=== PATIENT | male | born 1985 | race African-American/Black ===

== ENCOUNTER 2017-03-31 20:03 | Emergency (ER) | payer OTHER ==
[2017-03-31 20:16] VITALS: BP 143/79
[2017-03-31] MEDS ORDERED: HYDROCODONE/ACETAMINOPHEN 5-325 MG 6 TAB/DSPK PO PRN (22:24)
[2017-03-31] MEDS ORDERED: HYDROCODONE/ACETAMINOPHEN 5-325 MG TABLET PO ONE (22:24)
[2017-03-31] MEDS ORDERED: DOXYCYCLINE HYCLATE 100 MG TABLET PO ONE (22:24)
--- NOTE | 2017-03-31 22:29 | ER Document Report ---
ED General - General Chief Complaint: Ear Pain Stated Complaint: RIGHT EAR PAIN Time Seen by Provider: 03/31/17 22:10 Notes: Patient is a 31-year-old male who presents with complaint of pain in the right ear. Patient says that he was cleaning his ear with a syringe and he feels that he persists wants to form the ear and possibly to trauma to the canal. He says since in the ear canal swelled up and is painful. No blood coming from the ear. No abnormal discharge. No fevers. No vomiting. No recent cold-like symptoms. No other complaints at this time. TRAVEL OUTSIDE OF THE [place] IN LAST 30 DAYS: No - Related Data Allergies/Adverse Reactions: No Known Allergies Allergy (Verified 03/31/17 20:06) Past Medical History - Social History Smoking Status: Unknown if Ever Smoked Chew tobacco use (# tins/day): No Frequency of alcohol use: None Drug Abuse: None Family History: Reviewed & Not Pertinent Patient has suicidal ideation: No Patient has homicidal ideation: No Renal/ Medical History: Denies: Hx Peritoneal Dialysis Musculoskeltal Medical History: Reports Hx Arthritis Past Surgical History: Reports: Hx Orthopedic Surgery - l hip replaced-04/02 - Immunizations Hx Diphtheria, Pertussis, Tetanus Vaccination: Yes Review of Systems - Review of Systems Notes: My Normal Review Basic REVIEW OF SYSTEMS: CONSTITUTIONAL : Denies fever, chills, or sweats. Denies recent illness. EENT: Right-sided ear pain RESPIRATORY: Denies cough, cold, or chest congestion. Denies shortness of breath, difficulty breathing, or wheezing. MUSCULOSKELETAL: Denies neck or back pain or joint pain or swelling. SKIN: Denies rash or skin lesions. NEUROLOGICAL: Denies altered mental status or loss of consciousness. Denies headache. ALL OTHER SYSTEMS REVIEWED AND NEGATIVE. Physical Exam - Vital signs Vitals: Temp Pulse Resp BP Pulse Ox 99 F 82 18 143/79 H 98 03/31/17 20:14 03/31/17 20:14 03/31/17 20:14 03/31/17 20:14 03/31/17 20:14 - Notes Notes: General Appearance: Well nourished, alert, cooperative, no acute distress, no obvious discomfort. Vitals: reviewed, See vital signs table. Head: no swelling or tenderness to the head Eyes: PERRL, EOMI, Conjuctiva clear Mouth: No decreasd moisture Ears: Patient's ear itself is not swollen or red. Ear canal is swollen shut. This is consistent with patient's history of trauma from the earwax removing syringe. Neck: No significant swelling or redness into the neck. Skin: warm, dry, appropriate color, no rash Neuro: speech clear, oriented x 3, normal affect, responds appropriately to questions. Course - Re-evaluation Re-evalutation: 04/01/17 02:52 Patient will be discharged home eardrops to continuing Cipro and dexamethasone. Informed her to return to ER medially if has any redness or swelling around the ear if he has fevers or feels unwell. Patient agrees with plan will be discharged home. Dictation of this chart was performed using voice recognition software; therefore, there may be some unintended grammatical errors. - Vital Signs Vital signs: Temp Pulse Resp BP Pulse Ox 99 F 82 18 143/79 H 98 03/31/17 20:14 03/31/17 20:14 03/31/17 20:14 03/31/17 20:14 03/31/17 20:14 Discharge - Discharge Clinical Impression: Otitis externa Qualifiers: Otitis externa type: unspecified type Chronicity: acute Laterality: right Qualified Code(s): H60.501 - Unspecified acute noninfective otitis externa, right ear Condition: Good Disposition: HOME, SELF-CARE Additional Instructions: Otitis Externa You have otitis externa -- an infection of the outer ear canal. This can be very painful. It's sometimes called "swimmer's ear," because it often occurs after prolonged water exposure. Many things, such as earwax and dirt in the ear, can contribute to it. The usual treatment is antibiotic/antiinflammatory ear drops. Occasionally , a wick will be placed in the ear to draw in the medicine. If the infection is severe, an oral antibiotic may be prescribed. Pain medication is often needed. Avoid getting water in the ear. Outer ear infections often take longer to heal than you might expect. Some tenderness and ache in the ear may persist for about two weeks. See your physician if you fail to improve as expected. Call the doctor at once if you develop fever, increasing swelling (particularly if it makes your ear "poke out"), severe headache, stiff neck, or decreased hearing. PLace 1-2 drops in the right ear every 12 hours for 7 days to help your right ear pain. Forms: Return to Work
[2017-03-31] MEDS ORDERED: CIPROFLOXACIN-HC OTIC SUSP 10 ML AD ONE (22:34)
[2017-03-31] MEDS ORDERED: CIPROFLOXACIN-HC OTIC SUSP 10 ML ONE (22:53)
== END 2017-03-31 22:55 | disposition home or self-care (01) ==
LOC: ER 20:03
DX: H60.501 Unspecified acute noninfective otitis externa, right ear (principal); H92.01 Otalgia, right ear
CPT/HCPCS: 99282; J3490

== ENCOUNTER 2019-07-29 21:26 | Emergency (ER) | payer OTHER ==
[2019-07-29] MEDS ORDERED: AMOXICILLIN TR/POT CLAVULANATE 875-125 MG TAB PO ONE ×2 (22:06→23:22)
[2019-07-29] MEDS ORDERED: DIPH/PERTUSS(ACELL)/TETANUS VAC/PF 0.5 ML SYR (>=10YO) IM ONE (22:07)
[2019-07-29] MEDS ORDERED: RABIES VACCINE (PCEC)/PF 2.5 UNIT/1 ML KIT IM ONE (22:13)
[2019-07-29] MEDS ORDERED: RABIES IMMUNE GLOBULIN INJ/PF 300 UNIT/ML VIAL IM ONE (22:13)
[2019-07-29] MEDS ORDERED: BUPIVACAINE HCL 0.5 % INJ/PF 30 ML SDV INJ ONE (22:17)
--- NOTE | 2019-07-29 23:05 | RADIOLOGY REPORT (SQ) ---
CLINICAL INDICATION: dog bite. . TECHNIQUE: 3 view(s) were obtained of the left hand. COMPARISON: None. FINDINGS: No acute displaced fracture is identified of the hand. Alignment appears anatomic. Joint spaces are within normal limits for age. Soft tissue swelling. No retained radiopaque foreign body. IMPRESSION: No evidence of acute bony injury to the hand.
[2019-07-29] MEDS ORDERED: HYDROCODONE/ACETAMINOPHEN 5-325 MG (6 TAB/ER DISP) PO PRN (23:23)
--- NOTE | 2019-07-29 23:41 | ER Document Report ---
Entered by JADIEL PHIPPS SCRIBE 07/29/192200 Acting as scribe for:CEDRIC PERKINS IV, MD ED Animal Bite - General Chief Complaint: Dog Bite Stated Complaint: DOG BITE Time Seen by Provider: 07/29/19 21:59 Primary Care Provider: ETTA CACERES JR, DO [ACTIVE PROVISIONAL STAFF] - Follow up as needed [facility] [[facility]] - Follow up as needed Mode of Arrival: Ambulatory Information source: Patient Notes: This 33 year old male patient presents to the ED today with complaints of a dog bite to his left hand that occurred approximately x1 hour prior to arrival. Patient states that he found a dog in his yard and when he put his hand out, the dog bit him and then ran away. He notes that the dog was possibly a stray with brown fur and he may have been a Husky or Labrador. He reports that his last tetanus booster was in 2012 or 2013. Patient denies any known drug allergies. TRAVEL OUTSIDE OF THE [place] IN LAST 30 DAYS: No - Related Data Allergies/Adverse Reactions: No Known Allergies Allergy (Verified 03/31/17 20:06) Past Medical History - General Information source: Patient, [facility] Records - Social History Smoking Status: Never Smoker Chew tobacco use (# tins/day): No Frequency of alcohol use: Rare Drug Abuse: None Family History: Reviewed & Not Pertinent Patient has suicidal ideation: No Patient has homicidal ideation: No Musculoskeletal Medical History: Reports Hx Arthritis Past Surgical History: Reports: Hx Orthopedic Surgery - l hip replaced-04/02 - Immunizations Hx Diphtheria, Pertussis, Tetanus Vaccination: Yes Review of Systems - Review of Systems Constitutional: No symptoms reported EENT: No symptoms reported Cardiovascular: No symptoms reported Respiratory: No symptoms reported Gastrointestinal: No symptoms reported Genitourinary: No symptoms reported Male Genitourinary: No symptoms reported Musculoskeletal: No symptoms reported Skin: See HPI, Other - Dog bite to left hand Hematologic/Lymphatic: No symptoms reported Neurological/Psychological: No symptoms reported -: Yes All other systems reviewed and negative Physical Exam - Vital signs Vitals: Temp Pulse Resp BP Pulse Ox 98.7 F 76 16 151/73 H 100 07/29/19 21:31 07/29/19 21:31 07/29/19 21:31 07/29/19 21:31 07/29/19 21:31 Interpretation: Hypertensive - General General appearance: Alert In distress: None - HEENT Head: Normocephalic, Atraumatic Eyes: Normal - Respiratory Respiratory status: No respiratory distress Chest status: Nontender Breath sounds: Normal Chest palpation: Normal - Cardiovascular Rhythm: Regular Heart sounds: Normal auscultation Murmur: No Friction rub: No Gallop: None auscultated - Abdominal Inspection: Normal Distension: No distension Bowel sounds: Normal Tenderness: Nontender - Abdomen soft Organomegaly: No organomegaly - Back Back: Normal, Nontender - Extremities General lower extremity: Normal inspection Arm: Other - Superficial bite gloria to right tricep Hand: Laceration, Other - Motor and sensation intact. Cap refill < 2 seconds. - Neurological Neuro grossly intact: Yes - Psychological Associated symptoms: Normal affect, Normal mood - Skin Skin Temperature: Warm Skin Moisture: Dry Skin Color: Normal Skin irregularity: Laceration - 4 cm irregular laceration that violates subcutaneous tissue on palmar surface of left hand; laceration starts proximally over the the hypothenar eminence and ends distally over the third MCP. An additional 1 cm laceration was noted that was punctuate, located distally over the fourth MCP of the dorsal surface of left hand., other - Superficial bite gloria noted over the right tricep Course - Re-evaluation Re-evalutation: 07/29/19 23:23 Results of ED MSE discussed with patient. All questions were answered prior to discharge. Follow-up was discussed with patient. Signs and symptoms of infection, emergency signs and symptoms, reasons to return to the emergency department discussed with patient. Patient expressed understanding of signs to look out for as explained to him. - Vital Signs Vital signs: Temp Pulse Resp BP Pulse Ox 98.7 F 76 16 151/73 H 100 07/29/19 21:31 07/29/19 21:31 07/29/19 21:31 07/29/19 21:31 07/29/19 21:31 Procedures - Laceration/Wound Repair Left Volar Hand Time completed: 23:15 Wound length (cm): 5 Wound's Depth, Shape: Irregular Laceration pre-procedure: Sterile PPE donned, Betadine prep applied, Chloraprep applied Anesthetic type: 0.5% Bupivacaine Volume Anesthetic (mLs): 7 Wound explored: No foreign body removed Irrigated w/ Saline (mLs): 120 Wound Repaired With: Sutures Suture Size/Type: 3:0 Number of Sutures: 13 Layer Closure?: No Post-procedure wound care: Sterile dressing applied Post-procedure NV exam normal: Yes Complications: No Discharge - Discharge Clinical Impression: Tetanus toxoid vaccination administered at current visit, Rabies, need for prophylactic vaccination against Dog bite of hand Qualifiers: Encounter type: initial encounter Laterality: left Qualified Code(s): S61.452A - Open bite of left hand, initial encounter; W54.0XXA - Bitten by dog, initial encounter Condition: Good Disposition: HOME, SELF-CARE Additional Instructions: Return to the Emergency Department without delay if any worse. Have your stitches taken out in 14 days. Follow-up with the health department for your subsequent rabies vaccinations that need to be done on day 3, day 7 and day 14. Animal Bites Animal bites are often heavily contaminated with bacteria. In spite of thorough cleansing and proper treatment, these wounds frequently become infected. Bite wounds of the hands are especially prone to complications. Bites are dressed, if possible. Large wounds may require suturing after internal cleansing. Because of infection risk, some large wounds must remain unstitched. Your doctor is trained to advise you on the best treatment for your bite. Call the doctor at once if the wound becomes red, swollen, warm, increasingly painful, or if it begins to drain. Danger signs also include red streaks up the involved extremity, swollen glands in the groin or under the arm, or fever and chills. The risk of rabies from domestic animals is very low. Bats, sick animals, and wild animals may expose you to rabies. The physician, or the health department, will inform you if you will need to receive the rabies vaccine. HOME CARE INSTRUCTIONS & INFORMATION: Thank you for choosing us for your medical needs. We hope you're satisfied with the care you received. After you leave, you must properly care for your problem and, at the same time, observe its progress. Any condition can change. Some illnesses can change rapidly over hours or days. If your condition worsens, return to the Emergency Department or see your physician promptly. ABOUT YOUR X-RAYS AND EKG'S: If you had an EKG or X-rays taken, they have been read by the Emergency Physician. The X-rays and EKG's will also be read by a Radiologist or Building Carpenter Helper within 24 hours. If discrepancies are noted, you will be notified by telephone. Please be certain the ED has a correct telephone number & address where you can be reached. Also, realize that some fractures or abnormalities do not show up on initial X-rays. If your symptoms continue, see your physician. ABOUT YOUR LABORATORY TEST: If you had laboratory tests, the results have been reviewed by the Emergency Physician. Some test results (for example cultures) may not be available for several days. You will be contacted if any test result shows you need additional treatment. Please be certain the ED has a correct telephone number and address where you can be reached. ABOUT YOUR MEDICATIONS: You will receive instructions on how to take your medicine on the prescription label you receive. Additional information may be provided by the Pharmacy. If you have questions afterwards, call the ED for clarification or further instructions. Some prescribed medications may cause drowsiness. Do not perform tasks such as driving a car or operating machinery without consulting your Pharmacist. If you feel you need a refill of pain medication, your condition will need re-evaluation. Please do not call for a refill of any medication. ABOUT YOUR SIGNATURE: Signature of this document acknowledges to followin. Understanding that you received emergency treatment and that you may be released before al medical problems are known or treated. Please be certain the ED has a correct phone number & address where you can be reached. 2. Acknowledgement that you will arrange for follow-up care as recommended. 3. Authorization for the Emergency Physician to provide information to your follow-up Physician in order to maximize your care. AT ANY TIME, IF YOUR SYMPTOMS CHANGE SIGNIFICANTLY OR WORSEN OR YOU DEVELOP NEW SYMPTOMS, RETURN TO THE EMERGENCY DEPARTMENT IMMEDIATELY FOR RE-EVALUATION. OUR GOAL IS TO PROVIDE EXCELLENT MEDICAL CARE! WE HOPE THAT WE HAVE MET YOUR EXPECTATIONS DURING YOUR EMERGENCY DEPARTMENT VISIT AND THAT YOU FEEL YOU HAVE RECEIVED EXCELLENT CARE! Prescriptions: Hydrocodone/Acetaminophen [Dorset 5-325 mg Tablet] 1 tab PO Q6HP PRN #15 tablet PRN Reason: Amoxicillin/Potassium Clav [Augmentin 875-125 Tablet] 1 tab PO Q12 9 Days #18 tablet Referrals: [facility] [Primary Care Provider] - Follow up as needed ETTA CACERES JR, DO [ACTIVE PROVISIONAL STAFF] - Follow up as needed I personally performed the services described in the documentation, reviewed and edited the documentation which was dictated to the scribe in my presence, and it accurately records my words and actions.
[2019-07-30 00:32] VITALS: BP 140/80
== END 2019-07-30 00:25 | disposition home or self-care (01) ==
LOC: ER 21:26
DX: S61.452A Open bite of left hand, initial encounter (principal); S40.871A Other superficial bite of right upper arm, initial encounter; W54.0XXA Bitten by dog, initial encounter; Y92.007 Garden or yard of unspecified non-institutional (private) residence as the place of occurrence of the external cause; Z23 Encounter for immunization; Z20.3 Contact with and (suspected) exposure to rabies
CPT/HCPCS: 12002; 99283; 96372; 90471 ×2; 73130; 90715; 90675; 90375; J3490 ×3

== ENCOUNTER 2019-09-04 20:01 | Emergency (ER) | payer OTHER ==
[2019-09-04] MEDS ORDERED: KETOROLAC TROMETHAMINE 60 MG/2 ML SDV IM ONE (20:51)
--- NOTE | 2019-09-04 20:54 | ER Document Report ---
ED Medical Screen (RME) - General Chief Complaint: Shoulder Pain Stated Complaint: RIGHT SHOULDER INJURY Time Seen by Provider: 09/04/19 20:47 Primary Care Provider: PITER,DOUGLAS [Primary Care Provider] - Follow up as needed Mode of Arrival: Ambulatory Information source: Patient Notes: HPI; 34-year-old male past medical history significant for arthritis presents to the emergency room complaining of right shoulder pain for the past 3 weeks. States he was throwing a football with his kids when he heard a "pop". States did not fall or injure his shoulder and any other means. Has not been taking anything for pain other than his daily meloxicam which he states does not help. Denies any previous trauma or injury to his shoulder. Patient is right-handed. States it is painful when he tries to lift it. Keep hearing "clicking" PE: Alert and oriented x3, mild distress noted. Lungs are clear to auscultation without rales, rhonchi, or wheezes. Heart: Regular rate rhythm without murmurs, rubs, gallops. Nontender to the right shoulder, nontender to the right clavicle. No obvious deformity noted. Positive impingement. Painful range of motion with internal and external rotation of the right shoulder. I have greeted and performed a rapid initial assessment of this patient. A comprehensive ED assessment and evaluation of the patient, analysis of test results and completion of the medical decision making process will be conducted by additional ED providers. I have specifically instructed the patient or family members with the patient to immediately return to any nursing staff should anything change in the patient's condition or with their chief complaint. TRAVEL OUTSIDE OF THE [place] IN LAST 30 DAYS: No - Related Data Allergies/Adverse Reactions: No Known Allergies Allergy (Verified 09/04/19 20:45) Past Medical History - Social History Frequency of alcohol use: Occasional Drug Abuse: None Renal/ Medical History: Denies: Hx Peritoneal Dialysis Musculoskeltal Medical History: Reports Hx Arthritis Past Surgical History: Reports: Hx Orthopedic Surgery - l hip replaced-04/02 - Immunizations Hx Diphtheria, Pertussis, Tetanus Vaccination: Yes Physical Exam - Vital signs Vitals: Temp Pulse Resp BP Pulse Ox 98.6 F 61 18 150/96 H 93 09/04/19 20:04 09/04/19 20:04 09/04/19 20:04 09/04/19 20:04 09/04/19 20:04 Course - Vital Signs Vital signs: Temp Pulse Resp BP Pulse Ox 98.6 F 61 18 150/96 H 93 09/04/19 20:45 09/04/19 20:04 09/04/19 20:04 09/04/19 20:04 09/04/19 20:04 Doctor's Discharge - Discharge Referrals: [facility] [Primary [facility]] - Follow up as needed
--- NOTE | 2019-09-04 21:28 | RADIOLOGY REPORT (SQ) ---
CLINICAL INDICATION: pain. . TECHNIQUE: 3 view(s) were obtained of the right shoulder. COMPARISON: None. FINDINGS: No acute displaced fracture is identified of the shoulder. Alignment appears anatomic. Joint spaces are within normal limits for age. Surrounding soft tissues are unremarkable. IMPRESSION: No evidence of acute bony injury to the shoulder.
--- NOTE | 2019-09-04 21:35 | ER Document Report ---
HPI - HPI Patient complains to provider of: Right shoulder pain Time Seen by Provider: 09/04/19 20:47 Onset: Other Onset/Duration: Sudden Quality of pain: Throbbing Pain Level: 3 Context: 34-year-old male past medical history significant for arthritis presents to the emergency room complaining of right shoulder pain for the past 3 weeks. States he was throwing a football with his son when he heard a "pop" to his right shoulder. Denied falling or injuring his shoulder in any other way. States he has constant clicking when he tries to lift his shoulder. No history of previous trauma or injury to his shoulder. Patient is right-handed. Has not been taking anything for the pain. Drove himself to the emergency room. Associated Symptoms: None Exacerbated by: Movement Relieved by: Remaining still Similar symptoms previously: No Recently seen / treated by doctor: No - ROS ROS below otherwise negative: Yes - CONSTITUTIONAL Constitutional: DENIES: Fever, Chills - NEURO Neurology: DENIES: Weakness - CARDIOVASCULAR Cardiovascular: DENIES: Chest pain - RESPIRATORY Respiratory: DENIES: Trouble Breathing - REPRODUCTIVE Reproductive: DENIES: : - MUSCULOSKELETAL Musculoskeletal: REPORTS: Extremity pain - DERM Skin Color: Normal Skin Problems: None Past Medical History - General Information source: Patient - Social History Smoking Status: Never Smoker Frequency of alcohol use: Occasional Drug Abuse: None Family History: Reviewed & Not Pertinent Patient has homicidal ideation: No Renal/ Medical History: Denies: Hx Peritoneal Dialysis Musculoskeletal Medical History: Reports Hx Arthritis Past Surgical History: Reports: Hx Orthopedic Surgery - l hip replaced-04/02 - Immunizations Hx Diphtheria, Pertussis, Tetanus Vaccination: Yes Vertical Provider Document - CONSTITUTIONAL Agree With Documented VS: Yes Exam Limitations: No Limitations General Appearance: WD/WN, Mild Distress - INFECTION CONTROL TRAVEL OUTSIDE OF THE [place] IN LAST 30 DAYS: No - HEENT HEENT: Atraumatic, Normocephalic - NECK Neck: Normal Inspection, Supple - RESPIRATORY Respiratory: Breath Sounds Normal, No Respiratory Distress - CARDIOVASCULAR Cardiovascular: Regular Rate, Regular Rhythm, No Murmur. negative: Tachycardia, Bradycardia - BACK Back: Normal Inspection - MUSCULOSKELETAL/EXTREMETIES Musculoskeletal/Extremeties: Tender - Tenderness on palpation to the right AC joint, no obvious deformity noted. Painful range of motion with internal and external rotation of the left shoulder. Negative impingement. Nontender over the clavicle. - NEURO Level of Consciousness: Awake, Alert Motor/Sensory: No Motor Deficit, No Sensory Deficit Notes: Positive right radial pulse. Capillary refill less than 3 seconds. - DERM Integumentary: Warm, Dry, No Rash Course - Re-evaluation Re-evalutation: 09/04/19 21:34 Decreased pain. Improved range of motion. Reviewed x-ray results with patient. Counseled to take muscle relaxers as prescribed. Outpatient follow-up with orthopedics as discussed. Patient was provided with on-call physician. He was given strict return to the emergency room guidelines. Return for any new or worsening symptoms. All questions were answered. Patient verbalized unders tanding and agrees with plan of care. 09/04/19 21:41 - Vital Signs Vital signs: Temp Pulse Resp BP Pulse Ox 98.6 F 61 18 150/96 H 93 09/04/19 20:45 09/04/19 20:04 09/04/19 20:04 09/04/19 20:04 09/04/19 20:04 - Diagnostic Test Radiology reviewed: Reports reviewed Discharge - Discharge Clinical Impression: Right shoulder strain Qualifiers: Encounter type: initial encounter Qualified Code(s): S46.911A - Strain of unspecified muscle, fascia and tendon at shoulder and upper arm level, right arm, initial encounter Condition: Stable Disposition: HOME, SELF-CARE Additional Instructions: Use heat 20 minutes 3 times a day. Medications as prescribed. Call orthopedics tomorrow for follow-up appointment. Return for any new or worsening symptoms. Prescriptions: Cyclobenzaprine HCl [Flexeril 10 mg Tablet] 10 mg PO TIDP PRN #15 tab PRN Reason: Referrals: [facility] [Primary Care [facility]] - Follow up as needed YOUSIF MONTESINOS DO [ACTIVE STAFF] - Follow up tomorrow (Call tomorrow for an outpatient follow-up appointment.)
[2019-09-04 21:50] VITALS: BP 157/97
== END 2019-09-04 21:50 | disposition home or self-care (01) ==
LOC: ER 20:01
DX: S46.911A Strain of unspecified muscle, fascia and tendon at shoulder and upper arm level, right arm, initial encounter (principal); X58.XXXA Exposure to other specified factors, initial encounter; Y93.61 Activity, american tackle football; Z96.642 Presence of left artificial hip joint
CPT/HCPCS: 99283; 96372; 73030; J1885